=== PATIENT | female | born 1985 | race African-American/Black ===

== ENCOUNTER 2020-05-14 13:56 | Emergency (ER) | payer MEDICARE, OTHER ==
[~2020-05-14] VITALS: Ht 157.5 cm; Wt 60.8 kg
[2020-05-14] MEDS ORDERED: HYDROCODONE/APAP 5MG-325MG TAB PO ONE (14:15)
[2020-05-14] MEDS ORDERED: KETOROLAC TROMETHAMINE 60 MG/2 ML VIAL IM ONE (14:15)
[2020-05-14] MEDS ORDERED: ULTRAM50 MG PO (16:15)
[2020-05-14 17:24] VITALS: BP 136/85
== END 2020-05-14 17:25 | disposition home or self-care (01) ==
LOC: ER 15:03
DX: M53.3 Sacrococcygeal disorders, not elsewhere classified (principal); W01.0XXA Fall on same level from slipping, tripping and stumbling without subsequent striking against object, initial encounter; Y93.41 Activity, dancing; Y92.29 Other specified public building as the place of occurrence of the external cause
CPT/HCPCS: 72110; 72220; 99283; J1885

== ENCOUNTER 2021-05-06 13:47 | Emergency (ER) | payer MEDICARE, OTHER ==
[~2021-05-06] VITALS: Ht 157.5 cm; Wt 60.8 kg
[~2021-05-06 13:47] MED LIST: ULTRAM50 MG PO
[2021-05-06] MEDS ORDERED: ELIMITE60 GM TOP (14:22)
== END 2021-05-06 14:40 | disposition home or self-care (01) ==
LOC: FSED 14:16
DX: B86 Scabies (principal); F17.210 Nicotine dependence, cigarettes, uncomplicated
CPT/HCPCS: 99283